=== PATIENT | male | born 1970 | race Caucasian/White ===

== ENCOUNTER 2019-02-10 09:28 | Emergency (ER) | payer OTHER ==
[2019-02-10] MEDS ORDERED: NS 1,000 ML IV ONE (10:01)
[2019-02-10] MEDS ORDERED: IOPAMIDOL (ISOVUE-300) 100 ML BTL ONE (10:06)
--- NOTE | 2019-02-10 11:47 | EDPHY ---
H & P Stated Complaint: llq pain since this am sharp pain ,since 7 am Time Seen by Provider: 02/10/19 09:35 HPI/ROS: Chief Complaint: Abdominal pain HPI: Healthy 41-year-old male began having left lower abdominal pain this morning. Been persistent. Non migratory. No history of same. Does have a history of irritable bowel but this feels differently. No nausea or vomiting. Did have some loose stools. No fevers or chills. No chest pain or shortness of breath. No urinary urgency or frequency. ROS: 10 systems were reviewed and were negative except those elements noted in the HPI. PMH: Umbilical hernia, irritable bowel disease Social History: No smoking, no alcohol, no recreational drug use Family History: non-contributory Physical Exam: Gen: Awake, Alert, No Distress HEENT: Nose: no rhinorrhea Eyes: PERRLA, EOMI Mouth: Moist mucosa Neck: Supple, no JVD Chest: nontender, lungs clear to auscultation Heart: S1, S2 normal, no murmur Abd: Soft, left lower abdominal tenderness with guarding Back: no CVA tenderness, no midline tenderness Ext: no edema, non-tender Skin: no rash Neuro: CN II-XII intact, Sensation grossly intact, Strength 5/5 in bilateral upper and lower extremities - Personal History Current Tetanus/Diphtheria Vaccine: Unsure Current Tetanus Diphtheria and Acellular Pertussis (TDAP): Unsure - Medical/Surgical History Hx Asthma: Yes Hx Chronic Respiratory Disease: No Hx Diabetes: No Hx Cardiac Disease: No Hx Renal Disease: No Hx Cirrhosis: No Hx Alcoholism: No Hx HIV/AIDS: No Hx Splenectomy or Spleen Trauma: No Other PMH: nasal implant. achilles rebuilt. cystectomy chest. gen anxiety. asthma. htn. low T - Social History Smoking Status: Never smoked Constitutional: Initial Vital Signs Temperature (C) 36.4 C 02/10/19 09:34 Heart Rate 70 02/10/19 09:34 Respiratory Rate 18 02/10/19 09:34 Blood Pressure 159/101 H 02/10/19 09:34 O2 Sat (%) 92 02/10/19 09:34 O2 Delivery Mode Room Air Allergies/Adverse Reactions: No Known Allergies Allergy (Unverified 02/10/19 09:46) Home Medications: Medication Instructions Recorded Albuterol 02/10/19 Amoxicillin/Clavulanate Pot 875 mg PO BID #20 tab 02/10/19 [Augmentin 875 MG TAB (*)] Antialcohol 02/10/19 Bystolic 5 mg (*) 02/10/19 Oral Antifungal 02/10/19 Symbicort 160-4.5 Mcg Inh (*) 02/10/19 Testosterone 02/10/19 Zoloft 100mg (*) 02/10/19 Medical Decision Making - Diagnostics Imaging Results: Imaging Impressions Abdomen CT 02/10/19 10:01 Impression: 1. Moderate diverticulosis with equivocal subtle inflammatory stranding about the mid descending colon suggestive of mild diverticulitis. 2. Mild cardiomegaly without pericardial effusion. 3. Diffuse fatty infiltration the liver. Federico Pedraza was notified of these findings by telephone at 11:36 AM on 2018. ED Course/Re-evaluation: 41-year-old male with CT scan exam history findings consistent with a mild early diverticulitis. Patient is appropriate for outpatient therapy. Will start him on Augmentin and follow up with primary care physician. - Data Points Laboratory Results: 02/10/19 10:11 POC Sodium 140 mEq/L mEq/L (135-145) POC Potassium 4.1 mEq/L mEq/L (3.3-5.0) POC Chloride 104.0 mEq/L mEq/L (97-110) POC Total CO2 25 mEq/L mEq/L (22-31) POC BUN 20 mg/dL mg/dL (7-23) POC Creatinine 1.0 mg/dL mg/dL (0.7-1.3) POC Glucose 113 mg/dL H mg/dL (70-100) POC Calcium 9.6 mg/dL mg/dL (8.5-10.4) Medications Given: Discontinued Medications Sodium Chloride (Ns) 1,000 mls @ 0 mls/hr IV ONCE ONE; Wide Open PRN Reason: Protocol Stop: 02/10/19 10:02 Last Admin: 02/10/19 10:15 Dose: 1,000 mls Point of Care Test Results: CBC CBC Collection Date 02/10/19 CBC Collection Time 10:06 WBC 10.03 RBC 5.07 HGB 15.2 HCT 44.3 PLT 245 Neut # 7.58 Neut 75.5 LYMPH # 1.45 LYMPH 14.5 MCV 87.4 Chemistry 02/10/19 10:11 POC Sodium 140 mEq/L mEq/L (135-145) POC Potassium 4.1 mEq/L mEq/L (3.3-5.0) POC Chloride 104.0 mEq/L mEq/L (97-110) POC Total CO2 25 mEq/L mEq/L (22-31) POC BUN 20 mg/dL mg/dL (7-23) POC Creatinine 1.0 mg/dL mg/dL (0.7-1.3) POC Glucose 113 mg/dL H mg/dL (70-100) POC Calcium 9.6 mg/dL mg/dL (8.5-10.4) Departure - Departure Disposition: Home, Routine, Self-Care Clinical Impression: Diverticulitis Condition: Good Instructions: Diverticulitis (ED), Diverticulitis Diet (ED) Additional Instructions: Please take your full course of antibiotics. Take ibuprofen, 600 mg every 8 hr. You may alternate with acetaminophen, 1000 mg every 8 hr. Follow up with primary care physician in 4-5 days for recheck. Return to the emergency department for increasing abdominal pain, fevers or chills, uncontrolled nausea vomiting, or any other concerns. Referrals: Stoney Rojas DO [Medical Doctor] - As per Instructions Prescriptions: Amoxicillin/Clavulanate Pot [Augmentin 875 MG TAB (*)] 875 mg PO BID #20 tab
[2019-02-10 12:14] VITALS: BP 146/98
== END 2019-02-10 12:40 | disposition home or self-care (01) ==
LOC: CED 09:28
DX: K57.92 Diverticulitis of intestine, part unspecified, without perforation or abscess without bleeding (principal); E86.9 Volume depletion, unspecified
CPT/HCPCS: 74177-PO; 80048-ER; 85025-QW-ER; 96360-ER; 99285-ER; Q9967

== ENCOUNTER 2019-04-09 14:08 | Emergency (ER) | payer OTHER ==
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
[2019-04-09] MEDS ORDERED: TDAP ADULT 0.5 ML INJ (BOOSTRIX) IM ONE (14:53)
[2019-04-09 16:41] VITALS: BP 148/79
== END 2019-04-09 16:40 ==
LOC: EDUNIT#
DX: S71.159A Open bite, unspecified thigh, initial encounter (principal); S21.131A Puncture wound without foreign body of right front wall of thorax without penetration into thoracic cavity, initial encounter; W54.0XXA Bitten by dog, initial encounter; Y93.89 Activity, other specified; J45.909 Unspecified asthma, uncomplicated; I10 Essential (primary) hypertension; Z23 Encounter for immunization

== ENCOUNTER 2019-05-12 09:06 | Day surgery (SDC) | payer OTHER | END 2019-05-12 13:36 | disposition home or self-care (01) | LOC: FSGY 09:06 ==